=== PATIENT | female | born 1965 | race Caucasian/White ===

== ENCOUNTER 2017-02-11 14:40 | Emergency (ER) | payer SELFPAY ==
[~2017-02-11] VITALS: Ht 157.5 cm; Wt 70.0 kg
[~2017-02-11 14:40] MED LIST: AMIT10 PO; BUSP10 PO; LISI20 PO; NICO14DI TD; TOPI25 PO; XANA0.5T PO
[2017-02-11 14:47] VITALS: BP 185/105
[2017-02-11] MEDS ORDERED: XANA2TAB2 PO (14:55)
[2017-02-11] MEDS ORDERED: METO25TA3 PO (14:55)
[2017-02-11] MEDS ORDERED: LISI-515 PO (14:55)
[2017-02-11] MEDS ORDERED: MORPHINE SULFATE 4 MG/ML INJ IV PUSH ONE (15:15)
[2017-02-11] MEDS ORDERED: ONDANSETRON HCL 4 MG/2 ML VIAL IV PUSH ONE ×2 (15:15→16:30)
--- NOTE | 2017-02-11 15:33 | PD ---
HPI Chief Complaint: Fall Time Seen by Provider: 15:29 Travel History International Travel<30 days: No Contact w/Intl Traveler<30days: No Traveled to known affect area: No History of Present Illness HPI 50-year-old female that presents to the ED for evaluation of fall. Patient came by ambulance for evaluation of this. 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 She did not lose consciousness but she states that her foot on the right got stuck on the tile and now she has a deformity and bruising in the area. Ambulance was contacted. Per patient she does have a history of cervical fusion did years ago. Per patient she has pain on her neck, back of her head, right shoulder and right foot. Some the pain is also reproducible on the right back. Per patient the pain is 8 out of 10. She was not given anything by ambulance as they could not get an IV on her. Patient was put on a cervical collar but no backboard was placed. Patient was given ice for her right foot. She denies any other injuries. She denies any hip or knee pain. No pain on the left arm or leg. She did not try to ambulate on her own. She does have an allergy to codeine. She does not take any blood thinners. Pain is most severe on the foot as well as the neck. PFSH Past Medical History Arthritis: No Asthma: No Autoimmune Disease: No Blood Disorders: No Anxiety: Yes Depression: No Heart Rhythm Problems: No Cancer: No Cardiovascular Problems: Yes Chemotherapy: No Chest Pain: Yes Congestive Heart Failure: Yes COPD: No Cerebrovascular Accident: No Diabetes: No Diminished Hearing: No Endocrine: No Gastrointestinal Disorders: No GERD: No Glaucoma: No Genitourinary: Yes Headaches: Yes Hepatitis: No Hiatal Hernia: No Hypertension: Yes Immune Disorder: No Implanted Vascular Access Dvce: No Kidney Stones: Yes Musculoskeletal: Yes (Neck fusion due to Degenerative Disk Disease) Neurologic: Yes Psychiatric: Yes Reproductive: No Respiratory: No Immunizations Current: Yes Migraines: No Myocardial Infarction: No Radiation Therapy: No Renal Failure: No Seizures: No Sickle Cell Disease: No Sleep Apnea: No Thyroid Disease: No Ulcer: No Tetanus Vaccination: > 5 Years Influenza Vaccination: No ?: Not : 3 Para: 3 Miscarriage: 0 : 0 Past Surgical History Abdominal Surgery: Yes (APPENDECTOMY) AICD: No Appendectomy: Yes Arteriovenous Shunt: No Cardiac Surgery: No Cholecystectomy: Yes Ear Surgery: No Endocrine Surgery: No Eye Surgery: No Genitourinary Surgery: No Gynecologic Surgery: Yes (HYSTERECTOMY) Hysterectomy: Yes Insulin Pump: No Joint Replacement: No Neurologic Surgery: Yes (CERVICAL FUSION) Oral Surgery: Yes (ALL TEETH REMOVED ) Pacemaker: No Thoracic Surgery: No Tonsillectomy: Yes Other Surgery: Yes (Cholecystectomy, Hysterectomy, Appendectomy, Neck Fusion) Social History Alcohol Use: No Tobacco Use: Yes (11/06 PPD) Substance Use: Yes (Marijuana) Allergies-Medications (Allergen,Severity, Reaction): Coded Allergies: Codeine (Verified Allergy, Severe, Itching, 02/11/17) Reported Meds & Prescriptions Reported Meds & Active Scripts Active Diclofenac Sodium DR (Diclofenac Sodium) 75 Mg Tabdr 75 Mg PO BID PRN Percocet (Oxycodone-Acetaminophen) 5-325 mg Tab 1 Tab PO Q6H PRN Reported Xanax (Alprazolam) 2 Mg Tab 2 Mg PO Q8H PRN Metoprolol Tartrate 25 Mg Tab 25 Mg PO BID Lisinopril 20 Mg Tab 20 Mg PO DAILY Review of Systems Except as stated in HPI: all other systems reviewed are Neg Physical Exam Narrative GENERAL: SKIN: Warm and dry. HEAD: Atraumatic. Normocephalic. EYES: Pupils equal and round 4 mm reactive to light and accommodation. No scleral icterus. No injection or drainage. ENT: No nasal bleeding or discharge. Mucous membranes pink and moist. Tongue is midline. No uvula deviation. NECK: Trachea midline. No JVD. CARDIOVASCULAR: Regular rate and rhythm. No murmurs, S3, S4. RESPIRATORY: No accessory muscle use. Clear to auscultation. Breath sounds equal bilaterally. GASTROINTESTINAL: Abdomen soft, non-tender, nondistended. Hepatic and splenic margins not palpable. MUSCULOSKELETAL: Extremities without clubbing, cyanosis, or edema. No obvious deformities. Full range of motion of the upper extremities with no obvious deformity. Patient does have some bruising on the left arm around the biceps as well as in the right shoulder. She has bruising and swelling on the dorsal aspect of the right foot. No obvious deformity noted. 2+ pulses bilaterally. Good capillary refill of all toes. No lateral medial malleolar pain bilaterally. No hip pain. No knee pain. No obvious pelvic bone or lumbar spine tenderness to palpation. Patient does have some thoracic spine tenderness to palpation as well as pain on the musculature on the right thoracic area as well as the spine. Patient does have some cervical spine tenderness to palpation. Patient was seen with cervical collar in place. NEUROLOGICAL: Awake and alert. No obvious cranial nerve deficits. Motor grossly within normal limits. Five out of 5 muscle strength in the arms and legs. Normal speech. PSYCHIATRIC: Appropriate mood and affect; insight and judgment normal. Data Data Last Documented VS Vital Signs Date Time Temp Pulse Resp B/P Pulse Ox O2 Delivery O2 Flow Rate FiO2 02/11/17 15:54 97.8 55 16 127/61 96 Room Air Orders Ankle, Complete ([id number]) (02/11/17 14:51) Foot, Complete ([id number]) (02/11/17 14:51) Ice/Cold Pack (02/11/17 14:51) Ct Brain W/O Iv Contrast(Rout) (02/11/17 14:51) Ct Cerv Spine W/O Contrast (02/11/17 14:51) Ct Thor Spine W/O Contrast (02/11/17 14:51) Chest, Single Ap (02/11/17 14:51) Morphine Inj (Morphine Inj) (02/11/17 15:15) Ondansetron Inj (Zofran Inj) (02/11/17 15:15) Shoulder, Limited(2vws) (02/11/17 14:51) Hydromorphone Pf Inj (Dilaudid Pf Inj) (02/11/17 16:30) Ondansetron Inj (Zofran Inj) (02/11/17 16:30) Ketorolac Inj (Toradol Inj) (02/11/17 17:00) MDM Medical Decision Making Medical Screen Exam Complete: Yes Emergency Medical Condition: Yes Medical Record Reviewed: Yes Interpretation(s) Last Impressions Thoracic Spine CT 02/11/17 0825 Signed Impressions: Service Date/Time: Saturday, February 11, 2017 15:30 - CONCLUSION: 1. No fracture or acute thoracic spine abnormality is identified. There are degenerative changes present, as above. 2. The appearance of the kidneys may indicate medullary nephrocalcinosis. There are bilateral nonobstructing renal stones present. Clyde Bennett MD Shoulder X-Ray 02/11/171450 Signed Impressions: Service Date/Time: Saturday, February 11, 2017 16:09 - CONCLUSION: No definite acute finding is identified on this two-view examination. It is ideal to obtain additional views of the shoulders including external and internally rotated views for better evaluation of the humeral head. If there is a clinical concern for a shoulder injury consider additional views. Clyde Bennett MD Head CT 02/11/171450 Signed Impressions: Service Date/Time: Saturday, February 11, 2017 15:30 - CONCLUSION: Normal examination. Griffin Leon MD Foot X-Ray 02/11/171450 Signed Impressions: Service Date/Time: Saturday, February 11, 2017 16:03 - CONCLUSION: Degenerative changes at the ankle are seen without definite evidence for acute fracture. Griffin Leon MD Chest X-Ray 02/11/171450 Signed Impressions: Service Date/Time: Saturday, February 11, 2017 16:14 - CONCLUSION: No acute disease. Griffin Leon MD Cervical Spine CT 02/11/171450 Signed Impressions: Service Date/Time: Saturday, February 11, 2017 15:30 - CONCLUSION: Degenerative changes and postsurgical changes with no evidence for acute fracture or listhesis. Griffin Leon MD Ankle X-Ray 02/11/171450 Signed Impressions: Service Date/Time: Saturday, February 11, 2017 16:05 - CONCLUSION: Advanced degenerative change at the tibiotalar joint. No acute right ankle abnormality is identified. Clyde Bennett MD Differential Diagnosis Head injury versus fall versus fracture versus head contusion versus head bleed versus bruise Narrative Course 51-year-old female that presents to ED for evaluation of fall. Patient was properly examined and was found to have signs and symptoms consistent with appears to be mechanical fall. imaging ordered. Imaging showed no sign of acute bony disease. Patient was reassured. From history and physical this appears to be of fall and contusions. At this time patient was reassured. Patient requested more pain medication. Patient will be given 1 more dose of pain medication here in the ED. Patient agrees with going home. Patient will be given a prescription for a Sodium and Percocet. Told to apply ice or warm compresses. Close follow-up with PCP. See ED if worsening symptoms. Diagnosis Primary Impression: Fall Qualified Code: W19.XXXA - Fall, initial encounter Additional Impressions: Head injury due to trauma Qualified Code: S09.90XA - Head injury due to trauma, initial encounter Neck contusion Foot contusion Qualified Code: S90.31XA - Contusion of right foot, initial encounter Patient Instructions: General Instructions, Narcotic given in the ED Additional Instructions: Take medications as prescribed. Follow-up with PCP. See ED for any worsening symptoms. Do not drink or drive while taking pain medication. Apply ice or heat as needed for pain Med/Other Pt SpecificInfo: Prescription(s) given Scripts Diclofenac Sodium DR 75 Mg Tabdr75 Mg PO BID PRN (PAIN SCALE 1 TO 10) #20 TAB Prov:Yesenia Castro MD 02/11/17 Oxycodone-Acetaminophen (Percocet)5-325 mg Tab1 Tab PO Q6H PRN (PAIN) #20 TAB Ref 0 Prov:Yesenia Castro MD 02/11/17 Disposition: 01 DISCHARGE HOME Condition: Stable Ian Valentin Feb 11, 2017 15:33
--- NOTE | 2017-02-11 15:42 | RADRPT ---
EXAM DATE/TIME: 02/11/2017 15:30 [facility] COMPARISON: CT BRAIN W/O CONTRAST, April 08, 2016, 15:50. INDICATIONS : Fall through second story floor,pain. RADIATION DOSE: 48.11 CTDIvol (mGy) MEDICAL HISTORY : Cardiovascular disease. Hypertension. Congestive heart failure. SURGICAL HISTORY : Appendectomy. Cholecystectomy.Hysterectomy. ENCOUNTER: Initial ACUITY: 1 day PAIN SCALE: 10/10 LOCATION: cranial TECHNIQUE: Multiple contiguous axial images were obtained of the head. Using automated exposure control and adj ustment of the mA and/or kV according to patient size, radiation dose was kept as low as reasonably a chievable to obtain optimal diagnostic quality images. FINDINGS: CEREBRUM: The ventricles are normal for age. No evidence of midline shift, mass lesion, hemorrhage or acute in farction. No extra-axial fluid collections are seen. POSTERIOR FOSSA: The cerebellum and brainstem are intact. The 4th ventricle is midline. The cerebellopontine angle i s unremarkable. EXTRACRANIAL: The visualized portion of the orbits is intact. SKULL: The calvaria is intact. No evidence of skull fracture. CONCLUSION: Normal examination. Griffin Leon MD on February 11, 2017 at 15:40 Board Certified Radiologist. This report was verified electronically.
[2017-02-11 15:54] VITALS: BP 127/61; PULSE 55; RESP 16; TEMP 97.8; O2SAT 96
--- NOTE | 2017-02-11 16:05 | RADRPT ---
EXAM DATE/TIME: 02/11/2017 15:30 [facility] COMPARISON: No previous studies available for comparison. INDICATIONS : Fell through second story floor. RADIATION DOSE: 42.31 CTDIvol (mGy) MEDICAL HISTORY : Cardiovascular disease. Congestive heart failure. Hypertension. SURGICAL HISTORY : Appendectomy. Cholecystectomy.Hysterectomy. ENCOUNTER: Initial ACUITY: 1 day PAIN SCALE: 10/10 LOCATION: neck TECHNIQUE: Volumetric scanning of the cervical spine was performed. Multiplanar reconstructions in the sagittal, coronal and oblique axial planes were performed. Using automated exposure control and adjustment o f the mA and/or kV according to patient size, radiation dose was kept as low as reasonably achievable to obtain optimal diagnostic quality images. FINDINGS: The patient has had previous anterior cervical discectomy and intervertebral fusion at C5-6. Hardware is intact with solid intervertebral fusion across the disc space. Moderate degenerative disc disease at C3-4, C4-5, C6-7 noted with multilevel uncovertebral hypertrophy. There are no compression deform ities. Odontoid process is intact. No fractures are seen. Moderate canal stenosis at C3-4 secondary t o posterior disc osteophyte disease. Moderate canal narrowing at C4-5 secondary to posterior osteophy tic ridging. Mild canal narrowing at C5-6. CONCLUSION: Degenerative changes and postsurgical changes with no evidence for acute fracture or listhesis. Griffin Leon MD on February 11, 2017 at 16:01 Board Certified Radiologist. This report was verified electronically.
[2017-02-11] MEDS ORDERED: HYDROmorphone HCL PF 1 MG/ML VIAL IV PUSH ONE (16:30)
--- NOTE | 2017-02-11 16:35 | RADRPT ---
EXAM DATE/TIME: 02/11/2017 15:30 [facility] COMPARISON: CT ABDOMEN & PELVIS W CONTRAST, October 24, 2013, 21:24. INDICATIONS : Fell through second story floor. RADIATION DOSE: 37.20 CTDIvol (mGy) MEDICAL HISTORY : Cardiovascular disease. Congestive heart failure. Hypertension. SURGICAL HISTORY : Appendectomy. Cholecystectomy. Hysterectomy. ENCOUNTER: Initial ACUITY: 1 day PAIN SCALE: 10/10 LOCATION: T-spine TECHNIQUE: Volumetric scanning of the thoracic spine was performed. Multiplanar reconstructions in the sagittal , coronal and oblique axial planes were performed. Using automated exposure control and adjustment o f the mA and/or kV according to patient size, radiation dose was kept as low as reasonably achievable to obtain optimal diagnostic quality images. FINDINGS: There is subtle height loss of the superior endplate of T7 but no acute fracture is seen. Remaining v ertebral body heights are normal. There is a long plate osteophytes at multiple levels. No anterolist hesis or retrolisthesis is present. There has been prior ACDF at C5-C6. Decreased disc height is pres ent at C6-C7. T1-T2: No disc herniation, canal stenosis, or neural foraminal stenosis is visualized. T2-T3: No disc herniation, canal stenosis, or neural foraminal stenosis is visualized. T3-T4: There is left facet arthrosis. No disc herniation, canal stenosis, or neural foraminal stenosis is vi sualized. T4-T5: No disc herniation, canal stenosis, or neural foraminal stenosis is visualized. T5-T6: No disc herniation, canal stenosis, or neural foraminal stenosis is visualized. T6-T7: No disc herniation, canal stenosis, or neural foraminal stenosis is visualized. T7-T8: No disc herniation, canal stenosis, or neural foraminal stenosis is visualized. T8-T9: No disc herniation, canal stenosis, or neural foraminal stenosis is visualized. T9-T10: No disc herniation, canal stenosis, or neural foraminal stenosis is visualized. T10-T11: No disc herniation, canal stenosis, or neural foraminal stenosis is visualized. T11-T12: No disc herniation, canal stenosis, or neural foraminal stenosis is visualized. T12-L1: No disc herniation, canal stenosis, or neural foraminal stenosis is visualized. The visualized paraspinous structures demonstrate no acute finding. There is mild atherosclerotic dis ease of aorta. Increased density within the renal parenchyma bilaterally is in the region of the medu llary paramedics and there are bilateral nonobstructing renal stones measuring up to 4 mm. CONCLUSION: 1. No fracture or acute thoracic spine abnormality is identified. There are degenerative changes pres ent, as above. 2. The appearance of the kidneys may indicate medullary nephrocalcinosis. There are bilateral nonobst ructing renal stones present. Clyde Bennett MD on February 11, 2017 at 16:27 Board Certified Radiologist. This report was verified electronically.
--- NOTE | 2017-02-11 16:38 | RADRPT ---
EXAM DATE/TIME: 02/11/2017 16:14 [facility] COMPARISON: CHEST SINGLE AP, April 08, 2016, 14:17. INDICATIONS : Chest pain, fell through the floor today. MEDICAL HISTORY : None. SURGICAL HISTORY : None. ENCOUNTER: Initial ACUITY: 1 day PAIN SCORE: 7/10 LOCATION: Bilateral chest FINDINGS: A single view of the chest demonstrates the lungs to be symmetrically aerated without evidence of mas s, infiltrate or effusion. The cardiomediastinal contours are unremarkable. Osseous structures are intact. CONCLUSION: No acute disease. Griffin Leon MD on February 11, 2017 at 16:36 Board Certified Radiologist. This report was verified electronically.
--- NOTE | 2017-02-11 16:42 | RADRPT ---
EXAM DATE/TIME: 02/11/2017 16:05 [facility] COMPARISON: No previous studies available for comparison. INDICATIONS : Fell through floor today at home. MEDICAL HISTORY : None. SURGICAL HISTORY : None. ENCOUNTER: Initial ACUITY: 1 day PAIN SCORE: 8/10 LOCATION: Right ankle FINDINGS: 3 views of the right ankle demonstrate no fracture or dislocation. Ankle mortise is intact. There are osteophytes at the tibiotalar joint and there is joint space narrowing. No soft tissue abnormality o r radiopaque foreign body is identified. CONCLUSION: Advanced degenerative change at the tibiotalar joint. No acute right ankle abnormality is identified. Clyde Bennett MD on February 11, 2017 at 16:40 Board Certified Radiologist. This report was verified electronically.
--- NOTE | 2017-02-11 16:43 | RADRPT ---
EXAM DATE/TIME: 02/11/2017 16:03 [facility] COMPARISON: No previous studies available for comparison. INDICATIONS : Fell through the floor today. MEDICAL HISTORY : None. SURGICAL HISTORY : None. ENCOUNTER: Initial ACUITY: 1 day PAIN SCORE: 7/10 LOCATION: Right foot FINDINGS: Normal bone density. Mild osteoarthritis of the first MTP joint. There is a remote appearing fracture deformity of the medial malleolus with moderate degenerative changes at the ankle joint. No definite evidence for acute fracture. No dislocation. CONCLUSION: Degenerative changes at the ankle are seen without definite evidence for acute fracture. Griffin Leon MD on February 11, 2017 at 16:40 Board Certified Radiologist. This report was verified electronically.
--- NOTE | 2017-02-11 16:45 | RADRPT ---
EXAM DATE/TIME: 02/11/2017 16:09 [facility] COMPARISON: No previous studies available for comparison. INDICATIONS : Fell through the floor today at home. MEDICAL HISTORY : None. SURGICAL HISTORY : None. ENCOUNTER: Initial ACUITY: 1 day PAIN SCORE: 9/10 LOCATION: Right shoulder FINDINGS: 2 views of the right shoulder demonstrate no definite fracture or dislocation. Acromioclavicular join t appears intact. No soft tissue abnormality is seen. Visualize right chest demonstrates no acute fin ding. CONCLUSION: No definite acute finding is identified on this two-view examination. It is ideal to obtain additiona l views of the shoulders including external and internally rotated views for better evaluation of the humeral head. If there is a clinical concern for a shoulder injury consider additional views. Clyde Bennett MD on February 11, 2017 at 16:42 Board Certified Radiologist. This report was verified electronically.
[2017-02-11] MEDS ORDERED: DICL75TA PO (16:57)
[2017-02-11] MEDS ORDERED: PERC5TAB12 PO (16:57)
[2017-02-11] MEDS ORDERED: KETOROLAC TROMETHAMINE 30 MG/ML (IVP) VIAL IV PUSH ONE (17:00)
[2017-02-11 17:26] VITALS: BP 110/58; PULSE 50; RESP 16; O2SAT 96
== END 2017-02-11 17:50 | disposition home or self-care (01) ==
LOC: NEPC 14:40
DX: S09.90XA Unspecified injury of head, initial encounter (principal); S10.93XA Contusion of unspecified part of neck, initial encounter; S90.31XA Contusion of right foot, initial encounter; M25.511 Pain in right shoulder; M54.9 Dorsalgia, unspecified; I10 Essential (primary) hypertension; W07.XXXA Fall from chair, initial encounter; Y93.E9 Activity, other interior property and clothing maintenance; Y92.009 Unspecified place in unspecified non-institutional (private) residence as the place of occurrence of the external cause; Z72.0 Tobacco use; Z86.59 Personal history of other mental and behavioral disorders; Z86.79 Personal history of other diseases of the circulatory system; Z87.448 Personal history of other diseases of urinary system; Z87.39 Personal history of other diseases of the musculoskeletal system and connective tissue; Z86.69 Personal history of other diseases of the nervous system and sense organs
CPT/HCPCS: 70450; 71010; 72125; 72128; 73030; 73610; 73630; 96374; 96375; 96376; 99284; J1170; J1885; J2270; J2405

== ENCOUNTER 2017-12-25 17:47 | Emergency (ER) | payer SELFPAY ==
[~2017-12-25] VITALS: Ht 157.5 cm; Wt 75.0 kg
[~2017-12-25 17:47] MED LIST changes: -AMIT10 PO; -BUSP10 PO; +DICL75TA PO; +LISI-515 PO; -LISI20 PO; +METO25TA3 PO; -NICO14DI TD; +PERC5TAB12 PO; -TOPI25 PO; -XANA0.5T PO; +XANA2TAB2 PO
[2017-12-25 17:49] VITALS: BP 133/81; PULSE 91; RESP 24; TEMP 99.4; O2SAT 99
[2017-12-25 20:00] VITALS: BP 235/117; PULSE 93; RESP 16; O2SAT 95
[2017-12-25] MEDS ORDERED: SODIUM CHLORIDE 0.9% FLUSH 10 ML FLUSH IVF PRN (20:00)
[2017-12-25] MEDS ORDERED: KETOROLAC TROMETHAMINE 30 MG/ML (IVP) VIAL IV PUSH ONE (20:00)
[2017-12-25] MEDS ORDERED: ONDANSETRON HCL 4 MG/2 ML VIAL IV PUSH ONE (20:00)
[2017-12-25] MEDS ORDERED: SODIUM CHLOR 0.9% 1000 ML INJ 1,000 ML IV ONE (20:00)
--- NOTE | 2017-12-25 20:05 | PD ---
HPI Chief Complaint: Complaint Time Seen by Provider: 19:52 Travel History International Travel<30 days: No Contact w/Intl Traveler<30days: No Traveled to known affect area: No History of Present Illness HPI 51-year-old female presents for evaluation of left flank pain, abdominal pain, nausea and vomiting. She reports that symptoms started yesterday as pain in her left flank. Since then the pain has gradually radiated into the left side of her abdomen. The pain is a stabbing pain which is intermittent with no obvious aggravating or relieving factors. She reports associated nausea, vomiting, chills today. She reports one episode of diarrhea just prior to arriving here. She denies cough, congestion, sore throat. She has had dark colored urine. No history of kidney stones in the past. No other complaints at this time. PFSH Past Medical History Arthritis: No Asthma: No Autoimmune Disease: No Blood Disorders: No Anxiety: Yes Depression: No Heart Rhythm Problems: No Cancer: No Cardiovascular Problems: Yes Chemotherapy: No Chest Pain: Yes Congestive Heart Failure: Yes COPD: No Cerebrovascular Accident: No Diabetes: No Diminished Hearing: No Endocrine: No Gastrointestinal Disorders: No GERD: No Glaucoma: No Genitourinary: Yes Headaches: Yes Hepatitis: No Hiatal Hernia: No Hypertension: Yes Immune Disorder: No Implanted Vascular Access Dvce: No Kidney Stones: Yes Musculoskeletal: Yes (Neck fusion due to Degenerative Disk Disease) Neurologic: Yes Psychiatric: Yes Reproductive: No Respiratory: No Immunizations Current: Yes Migraines: No Myocardial Infarction: No Radiation Therapy: No Renal Failure: No Seizures: No Sickle Cell Disease: No Sleep Apnea: No Thyroid Disease: No Ulcer: No Influenza Vaccination: No ?: Not : 3 Para: 3 Miscarriage: 0 : 0 Past Surgical History Abdominal Surgery: Yes (APPENDECTOMY) AICD: No Appendectomy: Yes Arteriovenous Shunt: No Cardiac Surgery: No Cholecystectomy: Yes Ear Surgery: No Endocrine Surgery: No Eye Surgery: No Genitourinary Surgery: No Gynecologic Surgery: Yes (HYSTERECTOMY) Hysterectomy: Yes (full) Insulin Pump: No Joint Replacement: No Neurologic Surgery: Yes (CERVICAL FUSION) Oral Surgery: Yes (ALL TEETH REMOVED ) Pacemaker: No Thoracic Surgery: No Tonsillectomy: Yes Other Surgery: Yes (Cholecystectomy, Hysterectomy, Appendectomy, Neck Fusion) Social History Alcohol Use: No Tobacco Use: Yes (11/06 PPD) Substance Use: Yes (Marijuana) Allergies-Medications (Allergen,Severity, Reaction): Coded Allergies: codeine (Unverified Allergy, Severe, Itching, 12/25/17) Reported Meds & Prescriptions Reported Meds & Active Scripts Active Zofran (Ondansetron HCl) 4 Mg Tab 4 Mg PO Q6HR PRN Ibuprofen 800 Mg Tab 800 Mg PO Q6HR PRN Reported Xanax (Alprazolam) 2 Mg Tab 2 Mg PO Q8H PRN Metoprolol Tartrate 25 Mg Tab 25 Mg PO BID Review of Systems Except as stated in HPI: all other systems reviewed are Neg Physical Exam Narrative GENERAL: Well-developed well-nourished female in no acute distress SKIN: Warm and dry. HEAD: Atraumatic. Normocephalic. EYES: Pupils equal and round. No scleral icterus. No injection or drainage. ENT: No nasal bleeding or discharge. Mucous membranes pink and moist. NECK: Trachea midline. No JVD. CARDIOVASCULAR: Regular rate and rhythm. No murmur appreciated. RESPIRATORY: No accessory muscle use. Clear to auscultation. Breath sounds equal bilaterally. GASTROINTESTINAL: Abdomen soft, mild left upper quadrant and left lower quadrant and left CVA tenderness without guarding. MUSCULOSKELETAL: No obvious deformities. No edema. NEUROLOGICAL: Awake and alert. No obvious cranial nerve deficits. Motor grossly within normal limits. Normal speech. PSYCHIATRIC: Appropriate mood and affect; insight and judgment normal. Data Data Last Documented VS Vital Signs Date Time Temp Pulse Resp B/P (MAP) Pulse Ox O2 Delivery O2 Flow Rate FiO2 12/25/17 20:32 100 18 192/108 (136) 98 Room Air 12/25/17 17:49 99.4 Orders Orders Urinalysis - C+S If Indicated (12/25/17 18:12) Complete Blood Count With Diff (12/25/17 20:00) Comprehensive Metabolic Panel (12/25/17 20:00) Ct Abd/Pel W/O Iv Contrast (12/25/17 20:00) Ecg Monitoring (12/25/17 20:00) Iv Access Insert/Monitor (12/25/17 20:00) Ketorolac Inj (Toradol Inj) (12/25/17 20:00) Ondansetron Inj (Zofran Inj) (12/25/17 20:00) Sodium Chloride 0.9% Flush (Ns Flush) (12/25/17 20:00) Sodium Chlor 0.9% 1000 Ml Inj (Ns 1000 M (12/25/17 20:00) Lipase (12/25/17 20:00) Morphine Inj (Morphine Inj) (12/25/17 20:45) Ed Discharge Order (12/25/17 21:30) Labs Laboratory Tests Test 12/25/17 19:55 12/25/17 20:05 Urine Color YELLOW Urine Turbidity CLEAR Urine pH 7.5 Urine Specific Fowler 1.012 Urine Protein NEG mg/dL Urine Glucose (UA) NEG mg/dL Urine Ketones NEG mg/dL Urine Occult Blood MOD Urine Nitrite NEG Urine Bilirubin NEG Urine Urobilinogen LESS THAN 2.0 MG/DL Urine Leukocyte Esterase NEG Urine RBC /hpf Urine WBC 1 /hpf Urine Squamous Epithelial Cells <1 /hpf Urine Amorphous Sediment RARE Urine Mucus FEW /lpf Microscopic Urinalysis Comment CULT NOT INDICATED White Blood Count 11.3 TH/MM3 Red Blood Count 4.82 MIL/MM3 Hemoglobin 15.1 GM/DL Hematocrit 43.2 % Mean Corpuscular Volume 89.6 FL Mean Corpuscular Hemoglobin 31.2 PG Mean Corpuscular Hemoglobin Concent 34.9 % Red Cell Distribution Width 13.7 % Platelet Count 265 TH/MM3 Mean Platelet Volume 9.3 FL Neutrophils (%) (Auto) 57.3 % Lymphocytes (%) (Auto) 29.0 % Monocytes (%) (Auto) 8.7 % Eosinophils (%) (Auto) 4.0 % Basophils (%) (Auto) 1.0 % Neutrophils # (Auto) 6.5 TH/MM3 Lymphocytes # (Auto) 3.3 TH/MM3 Monocytes # (Auto) 1.0 TH/MM3 Eosinophils # (Auto) 0.5 TH/MM3 Basophils # (Auto) 0.1 TH/MM3 CBC Comment DIFF FINAL Differential Comment Blood Urea Nitrogen 18 MG/DL Creatinine 0.82 MG/DL Random Glucose 88 MG/DL Total Protein 8.3 GM/DL Albumin 4.1 GM/DL Calcium Level 9.4 MG/DL Alkaline Phosphatase 111 U/L Aspartate Amino Transf (AST/SGOT) 33 U/L Alanine Aminotransferase (ALT/SGPT) 45 U/L Total Bilirubin 0.7 MG/DL Sodium Level 141 MEQ/L Potassium Level 3.8 MEQ/L Chloride Level 107 MEQ/L Carbon Dioxide Level 27.2 MEQ/L Anion Gap 7 MEQ/L Estimat Glomerular Filtration Rate 73 ML/MIN Lipase 270 U/L MDM Medical Decision Making Medical Screen Exam Complete: Yes Emergency Medical Condition: Yes Medical Record Reviewed: Yes Differential Diagnosis Ureteral stone, hydronephrosis, pyelonephritis, colitis, diverticulitis Narrative Course Lab work, urinalysis, CT abdomen and pelvis have been ordered. The patient will be given Zofran, Toradol, IV fluids. CT imaging reveals multiple nonobstructing stones with no acute abnormalities. Urinalysis reveals hematuria. CBC reveals WBC count 11.3 with no other abnormalities. Upon reexamination the patient continues to have some residual pain but significantly improved. The plan of either treat her symptomatically with a short course of NSAIDs and antiemetics. Recommended that she follow up with her primary care physician for repeat urinalysis to ensure hematuria resolution and return for any acutely new or worsening symptoms. She is agreeable to this plan. Diagnosis Primary Impression: Flank pain Additional Impression: Hematuria Additional Instructions: Medication as needed. Follow up with her primary care physician. Return for any acutely new or worsening symptoms. Med/Other Pt SpecificInfo: Prescription(s) given Scripts Ondansetron (Zofran) 4 Mg Tab 4 MG PO Q6HR Y for NAUSEA OR VOMITING, #20 TAB 0 Refills Prov: Sergio Tom MD 12/25/17 Ibuprofen (Ibuprofen) 800 Mg Tab 800 MG PO Q6HR Y for PAIN, #40 TAB 0 Refills Prov: Sergio Tom MD 12/25/17 Disposition: 01 DISCHARGE HOME Condition: Stable Tomas Ramirez Dec 25, 2017 20:05
[2017-12-25 20:27] LABS: AMORPHOUS SEDIMENT, URINE RARE; BILIRUBIN, URINE NEG (NEG); BLOOD, URINE MOD (NEG); GLUCOSE,URINE NEG (NEG); KETONE, URINE NEG (NEG); MUCUS URINE FEW /lpf (OCC); NITRITE,URINE NEG (NEG); PH, URINE 7.5 (5.0-8.5); SQUAMOUS EPITHELIAL CELL URINE <1 /hpf (0-5); URINE COLOR YELLOW (YELLW/STRAW); URINE LEUKOCYTE ESTERASE NEG (NEG)
[2017-12-25 20:32] VITALS: BP 192/108; PULSE 100; RESP 18; O2SAT 98
[2017-12-25 20:32] LABS: AUTOMATED NEUTROPHIL # 6.5 TH/MM3 (1.8-7.7); BASOPHIL # 0.1 TH/MM3 (0-0.2); EOSINOPHIL # 0.5 TH/MM3 (0-0.4); HEMATOCRIT 43.2 % (35.0-46.0); HEMOGLOBIN 15.1 GM/DL (11.6-15.3); LYMPHOCYTE # 3.3 TH/MM3 (1.0-4.8); MEAN CELL VOLUME 89.6 FL (80.0-100.0); MEAN CORPUSCULAR HEMOGLOBIN 31.2 PG (27.0-34.0); MEAN CORPUSCULAR HGB CONC 34.9 % (32.0-36.0); MEAN PLATELET VOLUME 9.3 FL (7.0-11.0); MONO % 8.7 % (0.0-8.0); NEUT % 57.3 % (16.0-70.0); PLATELET COUNT 265 TH/MM3 (150-450); RED BLOOD COUNT 4.82 MIL/MM3 (4.00-5.30); RED CELL DISTRIBUTION WIDTH 13.7 % (11.6-17.2); WHITE BLOOD COUNT 11.3 TH/MM3 (4.0-11.0)
[2017-12-25 20:41] LABS: ALBUMIN 4.1 GM/DL (3.4-5.0); AST (GOT) 33 U/L (15-37); BICARBONATE 27.2 MEQ/L (21.0-32.0); BLOOD UREA NITROGEN 18 MG/DL (7-18); CALCIUM 9.4 MG/DL (8.5-10.1); CHLORIDE 107 MEQ/L (98-107); CREATININE 0.82 MG/DL (0.50-1.00); GLOMERULAR FILTRATION RATE 73 ML/MIN (>89); GLUCOSE,RANDOM 88 MG/DL (74-106); SODIUM (NA) 141 MEQ/L (136-145)
[2017-12-25 20:42] LABS: ALT (GPT) 45 U/L (10-53)
[2017-12-25 20:44] LABS: ALKALINE PHOSPHATASE 111 U/L (45-117); TOTAL BILIRUBIN ADULT 0.7 MG/DL (0.2-1.0); TOTAL PROTEIN 8.3 GM/DL (6.4-8.2)
[2017-12-25] MEDS ORDERED: MORPHINE SULFATE 2 MG/ML INJ IV PUSH ONE (20:45)
--- NOTE | 2017-12-25 21:21 | RADRPT ---
EXAM DATE/TIME: 12/25/2017 20:57 [facility] COMPARISON: CT ABDOMEN & PELVIS W CONTRAST, January 08, 2010, 13:43. INDICATIONS : Left flank pain with hematuria. ORAL CONTRAST: No oral contrast ingested. RADIATION DOSE: 9.10 CTDIvol (mGy) MEDICAL HISTORY : Hypertension. Renal calculi. SURGICAL HISTORY : Appendectomy. Cholecystectomy.Hysterectomy. ENCOUNTER: Initial ACUITY: 1 day PAIN SCALE: 9/10 LOCATION: Left flank TECHNIQUE: Volumetric scanning of the abdomen and pelvis was performed. Using automated exposure control and ad justment of the mA and/or kV according to patient size, radiation dose was kept as low as reasonably achievable to obtain optimal diagnostic quality images. DICOM format image data is available electro nically for review and comparison. FINDINGS: LOWER LUNGS: The visualized lower lungs are clear. LIVER: Visualized portions are unremarkable. Gallbladder is surgically absent. SPLEEN: Visualized portions are unremarkable. PANCREAS: Within normal limits. KIDNEYS: 9 mm dense lesion in the inferior pole the left kidney likely reflecting hemorrhagic cyst. Scattered bilateral 2-3 mm calyceal calculi with bilateral increased medullary density suggesting measuring of calcinosis. Calcified density seen in the left lower abdomen does not correspond to the course of the ureter. ADRENAL GLANDS: Within normal limits. VASCULAR: There is no aortic aneurysm. BOWEL/MESENTERY: The stomach, small bowel, and colon demonstrate no acute abnormality. There is no free intraperitone al air or fluid. ABDOMINAL WALL: Within normal limits. RETROPERITONEUM: There is no lymphadenopathy. BLADDER: No wall thickening or mass. No radiopaque bladder calculi. REPRODUCTIVE: Within normal limits. INGUINAL: There is no lymphadenopathy or hernia. MUSCULOSKELETAL: Stable benign-appearing right sacral sclerotic lesion. Otherwise, unremarkable. CONCLUSION: 1. Multiple bilateral 2-3 mm nonobstructing calyceal calculi. No significant hydronephrosis. 2. 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 3. Stable ancillary findings, as above. Alex Harrison MD on December 25, 2017 at 21:13 Board Certified Radiologist. This report was verified electronically.
[2017-12-25] MEDS ORDERED: IBUP1TAB7 PO (21:31)
[2017-12-25] MEDS ORDERED: ZOFR4TAB PO (21:31)
[2017-12-25 21:35] VITALS: BP 162/76; PULSE 66; RESP 16; O2SAT 98
== END 2017-12-25 21:51 | disposition home or self-care (01) ==
LOC: NEPC 17:47
DX: R10.9 Unspecified abdominal pain (principal); R31.9 Hematuria, unspecified; R11.2 Nausea with vomiting, unspecified; R19.7 Diarrhea, unspecified; I11.0 Hypertensive heart disease with heart failure; I50.9 Heart failure, unspecified; F12.90 Cannabis use, unspecified, uncomplicated; F17.200 Nicotine dependence, unspecified, uncomplicated
CPT/HCPCS: 74176; 80053; 81001; 83690; 85025; 96361; 96374; 96375; 99284; J1885; J2270; J2405; J7030

== ENCOUNTER 2018-05-26 17:32 | Observation (INO) ==
[2018-05-26] MEDS ORDERED: Morphine Inj 4 MG, Morphine Inj 2 MG IV.PUSH ONE ×2 (17:43)
--- NOTE | 2018-05-26 17:48 | ED ---
HPI General Chief complaint: Chest Pain Stated complaint: Pt states chest pain Time Seen by Provider: 05/26/18 17:44 History of Present Illness HPI narrative: Patient 52-year-old female presents emergency department with tight left-sided chest pain for the past 3 hours. Patient appears significantly uncomfortable on arrival, denies radiation of her pain but states her left fingers feel numb and tingling. Also endorses some shortness of breath no dizziness mild nausea without vomiting. States the pain is intense, left-sided, no radiation, context as has a history of high blood pressure cholesterol and is a cigarette smoker. Denies a history of diabetes. Patient states she had a stress test sometime in the past but unable to tell us exactly when. Related Data Home Medications Medication Instructions Recorded Confirmed metoprolol succinate [Toprol XL] 25 mg PO BID 05/26/18 05/26/18 Allergies Allergy/AdvReac Type Severity Reaction Status Date / Time codeine Allergy Severe Itching Verified 05/26/18 17:36 Review of Systems Except as stated in HPI: all other systems reviewed are negative [facility] Medical History Medical History H/O: hysterectomy (Acute) Hypertension (Acute) Social History Social History Substance History: Active Abuse Second Hand Smoke Exposure: No Smoking Status: Heavy tobacco smoker Tobacco Type: Cigarettes How Often Do You Have a Drink Containing Alcohol: 2 to 4 times a month Recent Travel in [facility] within the Last 8 Weeks: No Recent Out of Country Travel within the Last 8 Weeks: No Substance Abuse Detail Marijuana: Substance Use Status: Active Route Used Substance Abuse: Inhalation Immunization History Tetanus Immunization: Unsure Hx Influenza Vaccine This Season: No Exam Narrative Exam Narrative: GENERAL: Well-developed well-nourished very uncomfortable appearing female. Appears older than stated age SKIN: Focused skin assessment warm/dry. HEAD: Atraumatic. Normocephalic. EYES: Pupils equal and round. No scleral icterus. No injection or drainage. ENT: No nasal bleeding or discharge. Mucous membranes pink and moist. NECK: Trachea midline. No JVD. CARDIOVASCULAR: Regular rate and rhythm. No murmur appreciated. No murmurs gallops or rubs, 2+ bilateral equal pulses in all 4 extremities. RESPIRATORY: No accessory muscle use. Clear to auscultation. Breath sounds equal bilaterally. GASTROINTESTINAL: Abdomen soft, non-tender, nondistended. Hepatic and splenic margins not palpable. MUSCULOSKELETAL: No obvious deformities. No clubbing. No cyanosis. No edema. NEUROLOGICAL: Awake and alert. No obvious cranial nerve deficits. Motor grossly within normal limits. Normal speech. PSYCHIATRIC: Appropriate mood and affect; insight and judgment normal. Course Initial Documented Vital Signs Temperature 98.1 F 05/26/18 17:37 Pulse Rate 80 05/26/18 17:37 Respiratory Rate 32 H 05/26/18 17:37 Blood Pressure 196/90 H 05/26/18 17:37 Pulse Oximetry 99 05/26/18 17:37 Last Documented Vital Signs Temperature 98.0 F 05/27/18 15:49 Pulse Rate 59 L 05/27/18 15:49 Respiratory Rate 18 05/27/18 15:49 Blood Pressure 142/73 H 05/27/18 15:49 Pulse Oximetry 97 05/27/18 15:49 Medical Decision Making MDM Narrative Medical decision making narrative: Patient room to the emergency department, patient appears fairly uncomfortable and differentials do include dissection, any artery disease, reflux, esophageal spasm. Multiple medications were given and patient's pain is somewhat better under control. She still endorses some level of pain however. Her EKG was trended and 2 negative in the ER, there was also 2 troponin sent which were also negative. Patient was briefly discussed with ALEXANDER as the patient had significant need for pain control blood was thought by ALEXANDER the patient will be stable for chest pain center. The recommended dose of Ativan for the night. I think this is reasonable. Discussed with negative results with the patient and recommended chest pain center observation and she is agreeable. Differential Diagnosis Differential Diagnosis: ACS, ID, esophageal reflux, esophageal spasm, peptic ulcer disease, aortic dissection Lab Data Result diagrams: 05/26/18 17:47 05/26/18 17:47 Lab Results 05/26/18 05/26/18 05/26/18 Range/Units 17:47 17:47 17:47 WBC 11.7 H (4.0-11.0) th/mm3 RBC 4.96 (4.00-5.30) mil/mm3 Hgb 15.3 (11.6-15.3) gm/dL Hct 45.0 (35.0-46.0) % MCV 90.8 (80.0-100.0) fL MCH 30.9 (27.0-34.0) pg MCHC 34.1 (32.0-36.0) % RDW 13.7 (11.6-17.2) % Plt Count 273 (150-450) th/mm3 MPV 9.4 (7.0-11.0) fL Neut % (Auto) 58.5 (16.0-70.0) % Lymph % (Auto) 30.5 (9.0-44.0) % Emanuel % (Auto) 6.8 (0.0-8.0) % Eos % (Auto) 3.5 (0.0-4.0) % Baso % (Auto) 0.7 (0.0-2.0) % Neut # (Auto) 6.8 (1.8-7.7) th/mm3 Lymph # (Auto) 3.6 (1.0-4.8) th/mm3 Emanuel # (Auto) 0.8 (0.0-0.9) th/mm3 Eos # (Auto) 0.4 (0.0-0.4) th/mm3 Baso # (Auto) 0.1 (0.0-0.2) th/mm3 WBC Differential . Differential Comment Auto diff final PT 10.1 (9.8-11.6) sec INR 1.0 Ratio APTT 24.7 (24.3-30.1) sec Sodium 141 (136-145) meq/L Potassium 3.4 L (3.5-5.1) meq/L Chloride 105 (98-107) meq/L Carbon Dioxide 23.7 (21.0-32.0) meq/L Anion Gap 12 (5-15) meq/L BUN 16 (7-18) mg/dL Creatinine 1.04 H (0.50-1.00) mg/dL Estimated GFR 55 L (>89) mL/min Random Glucose 105 (74-106) mg/dL Calcium 9.1 (8.5-10.1) mg/dL Total Bilirubin 0.6 (0.2-1.0) mg/dL AST 34 (15-37) U/L ALT 43 (10-53) U/L Alkaline Phosphatase 108 (45-117) U/L Total Creatine Kinase (26-192) U/L Troponin I Less than 0.02 L (0.02-0.05) ng/mL Total Protein 8.0 (6.4-8.2) g/dL Albumin 4.0 (3.4-5.0) g/dL 05/26/18 05/26/18 05/27/18 Range/Units 19:50 23:00 08:14 WBC (4.0-11.0) th/mm3 RBC (4.00-5.30) mil/mm3 Hgb (11.6-15.3) gm/dL Hct (35.0-46.0) % MCV (80.0-100.0) fL MCH (27.0-34.0) pg MCHC (32.0-36.0) % RDW (11.6-17.2) % Plt Count (150-450) th/mm3 MPV (7.0-11.0) fL Neut % (Auto) (16.0-70.0) % Lymph % (Auto) (9.0-44.0) % Emanuel % (Auto) (0.0-8.0) % Eos % (Auto) (0.0-4.0) % Baso % (Auto) (0.0-2.0) % Neut # (Auto) (1.8-7.7) th/mm3 Lymph # (Auto) (1.0-4.8) th/mm3 Emanuel # (Auto) (0.0-0.9) th/mm3 Eos # (Auto) (0.0-0.4) th/mm3 Baso # (Auto) (0.0-0.2) th/mm3 WBC Differential Differential Comment PT (9.8-11.6) sec INR Ratio APTT (24.3-30.1) sec Sodium (136-145) meq/L Potassium (3.5-5.1) meq/L Chloride (98-107) meq/L Carbon Dioxide (21.0-32.0) meq/L Anion Gap (5-15) meq/L BUN (7-18) mg/dL Creatinine (0.50-1.00) mg/dL Estimated GFR (>89) mL/min Random Glucose (74-106) mg/dL Calcium (8.5-10.1) mg/dL Total Bilirubin (0.2-1.0) mg/dL AST (15-37) U/L ALT (10-53) U/L Alkaline Phosphatase (45-117) U/L Total Creatine Kinase 70 86 (26-192) U/L Troponin I Less than 0.02 L Less than 0.02 L Less than 0.02 L (0.02-0.05) ng/mL Total Protein (6.4-8.2) g/dL Albumin (3.4-5.0) g/dL Imaging Data Radiologist's impression: Chest X-Ray 05/26/18 17:42 CONCLUSION: No acute cardiopulmonary disease. Thoracic Aorta CT 05/26/18 17:44 CONCLUSION: 1. Scattered atherosclerotic change. A dissection or aneurysm is not seen. 2. Nonobstructing renal stone seen bilaterally. Myocardial Perfusion Scan Nuc Med 05/27/18 09:29 CONCLUSION: Discharge Plan Discharge Disposition Patient Disposition: 01 Discharge Home Discharge Condition Condition: Stable Discharge Order Discharge Orders: Discharge Order (Routine); Ordered 05/27/18 Ordered By: Keaton Panchal Discharge Details Anticipated Discharge Date: 05/27/18 Physicians Team ED Provider: Waqar Echols Primary Care Provider: Primary Care Cherelle Ireland Attending Provider: Estefany العراقي ED Status: Left Department Discharge Information Discharge Date/Time: 05/26/18 23:45
--- NOTE | 2018-05-26 18:10 | XR ---
EXAM DATE: 05/26/2018 6:06 PM EDT AGE/SEX: 52 years / Female INDICATIONS: Chest pain and shortness of breath. CLINICAL DATA: This is the patient's initial encounter. Patient reports that signs and symptoms have been present for 1 day and indicates a pain score of 10/10. MEDICAL/SURGICAL HISTORY: Hypertension. None. COMPARISON: [facility] [place], CHEST SINGLE AP, 02/11/2017. . FINDINGS: A single AP view of the chest demonstrates the lungs to be symmetrically aerated without evidence of mass, infiltrate or effusion. The cardiomediastinal contours are unremarkable. Osseous structures a re intact. CONCLUSION: No acute cardiopulmonary disease. Electronically signed by: Rosendo Rey MD 05/26/2018 6:09 PM EDT
[2018-05-26] MEDS ORDERED: HYDROmorphone PF Inj 1 MG/ML Ampul IV.PUSH ONE (18:13)
[2018-05-26] MEDS ORDERED: HYDROmorphone PF Inj 2 MG/ML Vial IV.PUSH ONE ×2 (18:14→20:37)
[2018-05-26] MEDS ORDERED: HYDROmorphone PF Inj 2 MG/ML Vial ONE (18:16)
[2018-05-26 18:23] LABS: Baso # (Auto) 0.1 th/mm3 (0.0-0.2); Baso % (Auto) 0.7 % (0.0-2.0); Eos # (Auto) 0.4 th/mm3 (0.0-0.4); Eos % (Auto) 3.5 % (0.0-4.0); Hemoglobin 15.3 gm/dL (11.6-15.3); Lymph # (Auto) 3.6 th/mm3 (1.0-4.8); Lymph % (Auto) 30.5 % (9.0-44.0); Mean Corpuscular HGB Conc 34.1 % (32.0-36.0); Mean Corpuscular Hemoglobin 30.9 pg (27.0-34.0); Mean Corpuscular Volume 90.8 fL (80.0-100.0); Mean Platelet Volume 9.4 fL (7.0-11.0); Mono # (Auto) 0.8 th/mm3 (0.0-0.9); Mono % (Auto) 6.8 % (0.0-8.0); Neut # (Auto) 6.8 th/mm3 (1.8-7.7); Neut % (Auto) 58.5 % (16.0-70.0); Platelet Count 273 th/mm3 (150-450); Red Blood Count 4.96 mil/mm3 (4.00-5.30); Red Cell Distribution Width 13.7 % (11.6-17.2); White Blood Count 11.7 th/mm3 (4.0-11.0)
[2018-05-26 18:33] LABS: Activated Partial Thrombo Time 24.7 sec (24.3-30.1); Prothrombin Time 10.1 sec (9.8-11.6)
[2018-05-26 18:43] LABS: Anion Gap 12 meq/L (5-15); Aspartate Aminotransferase 34 U/L (15-37); Blood Urea Nitrogen 16 mg/dL (7-18); Calcium 9.1 mg/dL (8.5-10.1); Carbon Dioxide 23.7 meq/L (21.0-32.0); Chloride 105 meq/L (98-107); Glomerular Filtration Rate 55 mL/min (>89); Glucose,Random 105 mg/dL (74-106); Potassium 3.4 meq/L (3.5-5.1); Sodium 141 meq/L (136-145)
[2018-05-26 18:44] LABS: Alanine Aminotransferase 43 U/L (10-53)
[2018-05-26 18:48] LABS: Alkaline Phosphatase 108 U/L (45-117)
--- NOTE | 2018-05-26 19:42 | CT ---
EXAM DATE: 05/26/2018 6:58 PM EDT AGE/SEX: 52 years / Female INDICATIONS: Chest pain. CLINICAL DATA: This is the patient's initial encounter. Patient reports that signs and symptoms have been present for 1 day and indicates a pain score of 8/10. MEDICAL/SURGICAL HISTORY: Hypertension. Hysterectomy. RADIATION DOSE: 7.21 CTDI (mGy) COMPARISON: [facility] [place], CT ABDOMEN & PELVIS W/O CONTRAST, 12/25/2017. . TECHNIQUE: Volumetric scanning was performed using a multi-row detector CT scanner during bolus infu efraín of 75 ml Omnipaque 350 (iohexol) nonionic water-soluble contrast as a single exam dose. The da ta was post processed with a variety of visualization algorithms including full volume maximum intens ity projection, multi-planar sliding thin slab reformation, curved planar reformation, and surface re ndering techniques. Using automated exposure control and adjustment of the mA and/or kV according to patient size, radiation dose was kept as low as reasonably achievable to obtain optimal diagnostic q uality images. DICOM format image data is available electronically for review and comparison. FINDINGS: Lungs: There is no consolidation or pneumothorax. No concerning pulmonary nodule is visualized. No pleural fluid is present. Mediastinum: No abnormally enlarged lymph nodes by CT criteria. No axillary or hilar abnormalities a re identified. Abdomen: The liver and spleen are free of focal defects. The patient is status post cholecystectomy. The pancreas demonstrate no abnormality. The adrenal glands are normal. There are small nonobstructi ng renal stone seen bilaterally measuring up to 3 mm. Scattered cystic change is seen with the larges t cyst seen at the posterior mid right kidney measuring 2.1 cm. The kidneys demonstrate no evidence o f solid renal mass or hydronephrosis. No free fluid or abdominal masses are identified. No para-aorti c adenopathy is seen. Pelvis: No evidence of free fluid or pelvic mass. The patient is status post hysterectomy. No abnorm ally enlarged inguinal or retroperitoneal lymph nodes are present. The bladder is unremarkable. Thoracic Aorta: The thoracic aortic root is normal with normal branching of the great vessels. Ther e is no evidence of aneurysm or dissection. Abdominal Aorta: The aorta is normal in caliber without aneurysm or dissection. Atherosclerotic calc ifications are seen. The renal arteries are patent bilaterally. The proximal celiac and superior mes enteric arteries are patent and normal in diameter. Pelvic Vessels: The internal iliac and external iliac vessels are patent without aneurysm or stenosi s. CONCLUSION: 1. Scattered atherosclerotic change. A dissection or aneurysm is not seen. 2. Nonobstructing renal stone seen bilaterally. Electronically signed by: Clyde Power MD 05/26/2018 7:41 PM EDT
[2018-05-26] MEDS ORDERED: LORazepam 1 MG Tablet PO ONE (22:04)
[2018-05-27 00:01] LABS: Creatine Kinase 70 U/L (26-192)
[2018-05-27] MEDS ORDERED: Acetaminophen 500 MG Tablet PO PRN (02:16)
[2018-05-27 09:29] LABS: Creatine Kinase 86 U/L (26-192)
[2018-05-27] MEDS ORDERED: Ketorolac Inj 30 MG/ML (IVP) Vial IV.PUSH ONE (10:00)
--- NOTE | 2018-05-27 10:40 | P.HPCA ---
History of Present Illness Primary Care Physician: No Primary Care Physician Chief Complaint: Chest pain History of Present Illness: This is a 52-year-old female the presents to ED with history of hypertension and tobacco abuse with complaint of developing a chest discomfort that woke her up 4:00 yesterday morning. States was underneath the left breast. It felt as if it is a fullness. It was a 10 out of 10. Is been there constantly but intensity waxes and wanes. Found nothing to worsen the symptoms but stated that the IV pain medication in the ED did help but states that that was short- lived. She has been intermittently short of breath, nauseous, and diaphoretic with the symptoms. She denies history of CAD. She believes she has had a stress test in the past. Upon reviewing records she had a adenosine thallium stress test 2010 that was nonischemic with a normal EF. Denies recent illness. Denies fevers or chills. Patient smokes 6-7 cigarettes a day and has done so for about 10 years. She has occasional marijuana. Denies alcohol. Denies family history of CAD. Patient has had a hysterectomy. - Diagnosis (1) Chest pain (2) Hypertension (3) Tobacco abuse Review of Systems General: Patient denies fevers, chills, and recent travel. HEENT: Patient denies headache, sore throat, difficulty swallowing. Cardiovascular: Has the chest discomfort as mentioned above. Denies sensation of heart beating rapidly or irregularly. No syncope. She has had intermittent diaphoresis. Respiratory: She has been intermittently short of breath. Denies inspirational chest discomfort. Denies coughing wheezing or hemoptysis. GI: Intermittent nausea. Patient denies vomiting, diarrhea, abdominal pain, bloody stools. Musculoskeletal: Patient denies joint pain or edema. Denies calf pain or edema. Neurovascular: Patient denies numbness, tingling, weakness in extremities. Denies headache. Endocrine: Denies polyuria and polydipsia. Hematologic: Denies easy bruising. Skin: Denies rash or itching. PMFSH - History History Provided By: Patient - Medical History Medical History: Medical History (Last Updated 05/26/18 @ 17:41 by Abby Shukla) H/O: hysterectomy Hypertension - Tobacco History Second Hand Smoke Exposure: No Tobacco Use In Past 30 Days: Yes Smoking Status: Heavy tobacco smoker Tobacco Type: Cigarettes - Alcohol History How Often Do You Have a Drink Containing Alcohol: 2 to 4 times a month - Substance Use History Substance History: Active Abuse - Substance Use Type Marijuana Status: Active Route Used: Inhalation - Travel History Recent Travel in the [place] Within the Last 8 Weeks: No Recent Travel Out of the Country Within the Last 8 Weeks: No - Immunization History Tetanus Immunization: Unsure Hx Influenza Vaccine This Season: No Medications and Allergies Active Medications: Active Medications Acetaminophen (Tylenol) 500 mg PO Q4HR PRN PRN Reason: HEADACHE Ondansetron HCl (Zofran Inj) 4 mg IV.PUSH Q6HR PRN PRN Reason: NAUSEA Sodium Chloride (Ns Flush) 2 ml IV.FLUSH UNSCH PRN PRN Reason: FLUSH AFTER USING IV ACCESS Sodium Chloride (Ns Flush) 2 ml IV.FLUSH BID DIAZ Last Admin: 05/27/18 09:57 Dose: 2 ml Sodium Chloride (Ns Flush) 2 ml IV.FLUSH PRN PRN PRN Reason: FLUSH AFTER USING IV ACCESS Allergies Allergy/AdvReac Type Severity Reaction Status Date / Time codeine Allergy Severe Itching Verified 05/26/18 17:36 Home Medications Medication Instructions Recorded Confirmed Type metoprolol succinate [Toprol XL] 25 mg PO BID 05/26/18 05/26/18 History Exam Vital signs: Vital Signs 05/26/18 17:37 05/26/18 17:42 05/26/18 20:30 Temperature 98.1 F Pulse Rate 80 80 Respiratory Rate 32 H 18 Blood Pressure 196/90 H 179/71 H Pulse Oximetry 99 100 98 05/26/18 21:00 05/26/18 22:00 05/26/18 22:05 Temperature Pulse Rate 100 H 58 L Respiratory Rate 20 16 Blood Pressure 163/78 H 127/60 Pulse Oximetry 98 98 99 05/26/18 22:53 05/27/18 00:00 05/27/18 01:41 Temperature 98.0 F 98.5 F Pulse Rate 64 72 85 Respiratory Rate 18 16 17 Blood Pressure 113/59 L 133/83 219/107 H Pulse Oximetry 99 100 95 05/27/18 02:42 05/27/18 04:00 05/27/18 05:50 Temperature 98.1 F Pulse Rate 59 L 70 Respiratory Rate 16 Blood Pressure 138/76 132/74 Pulse Oximetry 95 95 05/27/18 08:00 Temperature 98.1 F Pulse Rate 72 Respiratory Rate 16 Blood Pressure 153/78 H Pulse Oximetry Intake & Output 05/26/18 05/27/18 05/27/18 18:59 06:59 18:59 Weight 72.575 kg 72.575 kg Other: Weight On Admission 72.575 kg Narrative: GENERAL: This is a well-nourished, well-developed patient, in no apparent distress. Patient speaks in clear complete sentences. Patient is pleasant. HEENT: Head is atraumatic and normocephalic. Neck is supple without lymphadenopathy and trachea is midline. No JVD or carotid bruits. CARDIOVASCULAR: Regular rate and rhythm without murmurs, gallops, or rubs. RESPIRATORY: Clear to auscultation. Breath sounds equal bilaterally. No wheezes , rales, or rhonchi. Chest wall is tender. No use of accessory muscles. GASTROINTESTINAL: Abdomen is nontender, nondistended. Abdomen soft. No obvious pulsatile mass or bruit. No CVA tenderness. Strong femoral pulses bilaterally. Normal bowel sounds in all quadrants. MUSCULOSKELETAL: Patient is moving upper and lower extremities freely. No calf tenderness or edema, no Homans sign. Strong pulses in upper and lower extremities. NEUROLOGICAL: Patient is alert and oriented. Cranial nerves 2-12 are grossly intact. No focal deficits and speech is clear. SKIN: No rash and turgor is normal. Results 05/26/18 17:47 05/26/18 17:47 Cardiac Enzymes 05/26/18 05/26/18 05/26/18 Range/Units 17:47 19:50 23:00 AST 34 (15-37) U/L Troponin I Less than 0.02 L Less than 0.02 L Less than 0.02 L (0.02-0.05) ng/mL 05/27/18 Range/Units 08:14 AST (15-37) U/L Troponin I Less than 0.02 L (0.02-0.05) ng/mL Coagulation 05/26/18 Range/Units 17:47 PT 10.1 (9.8-11.6) sec APTT 24.7 (24.3-30.1) sec CBC 05/26/18 Range/Units 17:47 WBC 11.7 H (4.0-11.0) th/mm3 RBC 4.96 (4.00-5.30) mil/mm3 Hgb 15.3 (11.6-15.3) gm/dL Hct 45.0 (35.0-46.0) % Plt Count 273 (150-450) th/mm3 Neut # (Auto) 6.8 (1.8-7.7) th/mm3 Lymph # (Auto) 3.6 (1.0-4.8) th/mm3 [place] # (Auto) 0.8 (0.0-0.9) th/mm3 Eos # (Auto) 0.4 (0.0-0.4) th/mm3 Baso # (Auto) 0.1 (0.0-0.2) th/mm3 Comprehensive Metabolic Panel 05/26/18 Range/Units 17:47 Sodium 141 (136-145) meq/L Potassium 3.4 L (3.5-5.1) meq/L Chloride 105 (98-107) meq/L Carbon Dioxide 23.7 (21.0-32.0) meq/L BUN 16 (7-18) mg/dL Creatinine 1.04 H (0.50-1.00) mg/dL Calcium 9.1 (8.5-10.1) mg/dL AST 34 (15-37) U/L ALT 43 (10-53) U/L Alkaline Phosphatase 108 (45-117) U/L Total Protein 8.0 (6.4-8.2) g/dL Albumin 4.0 (3.4-5.0) g/dL Intake and Output 05/26/18 05/27/18 05/27/18 22:59 06:59 14:59 Other: Weight 72.575 kg 72.575 kg Weight On Admission 72.575 kg EKG interpretations - EKG EKG shows: tachycardia (EKGs have been sinus rhythm to sinus tachycardia without significant ST segment depressions or elevations.), sinus rhythm Caprini VTE Risk Assessment Caprini VTE Risk Assessment: No/Low Risk (score <= 1) Caprini Risk Assessment Model: Point Value = 1 Point Value = 2 Point Value = 3 Point Value = 5 Age 41-60 Minor surgery BMI > 25 kg/m2 Swollen legs Varicose veins or History of unexplained or recurrent spontaneous Oral contraceptives or hormone replacement Sepsis (< 1 month) Serious lung disease, including pneumonia (< 1 month) Abnormal pulmonary function Acute myocardial infarction Congestive heart failure (< 1 month) History of inflammatory bowel disease Medical patient at bed rest Age 61-74 Arthroscopic surgery Major open surgery (> 45 min) Laparoscopic surgery (> 45 min) Malignancy Confined to bed (> 72 hours) Immobilizing plaster cast Central venous access Age >= 75 History of VTE Family history of VTE Factor V Leiden Prothrombin [id number] Lupus anticoagulant Anticardiolipin antibodies Elevated serum homocysteine Heparin-induced thrombocytopenia Other congenital or acquired thrombophilia Stroke (< 1 month) Elective arthroplasty Hip, pelvis, or leg fracture Acute spinal cord injury (< 1 month) Prophylaxis Regimen: Total Risk Factor Score Risk Level Prophylaxis Regimen 0-1 Low Early ambulation 2 Moderate Order ONE of the following: *Sequential Compression Device (SCD) *Heparin 5000 units SQ BID 3-4 Higher Order ONE of the following medications: *Heparin 5000 units SQ TID *Enoxaparin/Lovenox 40 mg SQ daily (WT < 150 kg, CrCl > 30 mL/min) *Enoxaparin/Lovenox 30 mg SQ daily (WT < 150 kg, CrCl > 10-29 mL/min) *Enoxaparin/Lovenox 30 mg SQ BID (WT < 150 kg, CrCl > 30 mL/min) AND/OR *Sequential Compression Device (SCD) 5 or more Highest Order ONE of the following medications: *Heparin 5000 units SQ TID (Preferred with Epidurals) *Enoxaparin/Lovenox 40 mg SQ daily (WT < 150 kg, CrCl > 30 mL/min) *Enoxaparin/Lovenox 30 mg SQ daily (WT < 150 kg, CrCl > 10-29 mL/min) *Enoxaparin/Lovenox 30 mg SQ BID (WT < 150 kg, CrCl > 30 mL/min) AND *Sequential Compression Device (SCD) Assessment and Plan - Assessment (1) Chest pain Code(s): R07.9 - Chest pain, unspecified Status: Acute (2) Hypertension Code(s): I10 - Essential (primary) hypertension Status: Acute (3) Tobacco abuse Code(s): Z72.0 - Tobacco use Status: Acute - Plan * Chest pain: Patient has had serial cardiac enzymes and EKGs for ruling out purposes. She will be seen by Dr. Rosario of cardiology in the chest pain center and will undergo a Lexiscan. Patient will be discharged home if her stress test is nonischemic with instructions to follow-up with PCP. Return to ED for interval issues. * Hypertension: We will resume her medication. * Tobacco abuse: Patient has been counseled on the importance of smoking cessation. Patient is stable at this time. She is agreeable to this plan. H&P: Quality - VTE Deep Vein Thrombosis/Pulmonary Embolism Present on Admission: No
[2018-05-27] MEDS ORDERED: Regadenoson Inj 0.4 MG/5 ML Syringe IV.PUSH ONE (14:56)
--- NOTE | 2018-05-27 15:43 | NM ---
EXAM DATE: 05/27/2018 3:41 PM EDT AGE/SEX: 52 years / Female INDICATIONS:Angina. . Chest pain. CLINICAL DATA: This is the patient's initial encounter. Patient reports that signs and symptoms have been present for 1 day and indicates a pain score of 10/10. MEDICAL/SURGICAL HISTORY: Hypertension. Hysterectomy. COMPARISON: No prior exams available for comparison. No external comparison. DOSE: 8.1 mCi Tc 99m Myoview at rest 27.2 mCi [id number] at stress 0.4 mg Lexiscan STRESS SYMPTOMS: Shortness of breath. Chest pressure. EJECTION FRACTION: 66 % TECHNIQUE: The patient underwent pharmacologic stress with infusion of prescribed dose. Continuous ECG tracing was monitored during stress. Gated SPECT imaging was performed after stress and conventi onal SPECT imaging was performed at rest. The examination was performed on a SPECT/CT scanner, both attenuation and non-corrected datasets were reviewed. FINDINGS: Distribution: The maximum perfused segment at stress is in the septal wall. Perfusion Study: The pattern of perfusion at stress is within normal limits. Gated Study: There are intact wall motion and wall thickening without hypokinetic or dyskinetic segm ents. The ejection fraction is calculated at 66%. RISK CATEGORY: Low (<1% Annual Motality Rate) Unremarkable myocardial perfusion. Electronically signed by: Antonio Tapia MD 05/27/2018 3:42 PM EDT
--- NOTE | 2018-05-27 16:24 | ECG ---
Date Performed: 05/26/2018 Time Performed: 22:56:29 PTAGE: 52 years EKG: Sinus rhythm Normal ECG PREVIOUS TRACING : 05/26/2018 19.12 Since previous tracing, no significant change noted DOCTOR: Gibran Rosario Interpretating Date/Time 05/27/2018 16:23:59
--- NOTE | 2018-05-27 16:33 | ECG ---
Date Performed: 05/26/2018 Time Performed: 19:12:31 PTAGE: 52 years EKG: Sinus rhythm Normal ECG PREVIOUS TRACING : 05/26/2018 17.39 Since previous tracing, no significant change noted DOCTOR: Gibran Rosario Interpretating Date/Time 05/27/2018 16:31:36
--- NOTE | 2018-05-27 16:36 | ECG ---
Date Performed: 05/26/2018 Time Performed: 17:39:46 PTAGE: 52 years EKG: SINUS TACHYCARDIA POSSIBLE LEFT ATRIAL ENLARGEMENT ABNORMAL RHYTHM ECG INTERPRETATION BASED ON A DEFAULT AGE OF 40 YEARS Compared to PREVIOUS TRACING ,heart rate is faster. DOCTOR: Gibran Rosario Interpretating Date/Time 05/27/2018 16:34:59
--- NOTE | 2018-05-28 10:50 | TR ---
Date Performed: 05/27/2018 Time Performed: 14:49:03 DOCTOR: Gibran Rosario DRUG LIST: CLINICAL HISTORY: REASON FOR TEST: REASON FOR ENDING: OBSERVATION: CONCLUSION: COMMENTS: Lexiscan stress test was performed under standard four minute protocol. Radionuclide was injected one minute prior to ending the test. No electrocardiographic abormalities were present t o suggest ischemia. Nuclear imaging and interpretation are pending.
== END 2018-05-27 17:36 | disposition home or self-care (01) ==
LOC: NEPD 17:32 → NEDA 17:32 → NEPHCDU 17:32
PROVIDERS: ADMIT Internal Medicine Interventional Cardiology; ATTEND Internal Medicine Interventional Cardiology